=== PATIENT | female | born 1955 | race Caucasian/White ===

== ENCOUNTER 2019-09-27 16:53 | Observation (INO) | payer OTHER ==
[~2019-09-27] VITALS: Ht 167.6 cm; Wt 72.6 kg
[2019-10-29] MEDS ORDERED: ZOCOR20 MG PO (13:23)
[2019-10-29] MEDS ORDERED: LISINOPRIL20 MG PO (13:24)
[2019-10-29] MEDS ORDERED: HYDROCHLOROTHIA25 M2 PO (13:24)
[2019-10-29] MEDS ORDERED: YUVAFEM10 MCG (13:25)
[2019-10-29] MEDS ORDERED: TRAMADOL 50 MG50 MG PO (13:26)
[2019-10-29] MEDS ORDERED: BIOTIN1 MG PO (13:26)
[2019-10-29] MEDS ORDERED: VITAMIN B125000 MCG PO (13:27)
[2019-10-29] MEDS ORDERED: CITRACAL SOFT1 EACH PO (13:28)
[2019-10-29] MEDS ORDERED: PROBIOTIC1 EAC7 PO (13:29)
[2019-10-29] MEDS ORDERED: ASA81BEC PO (13:30)
[2019-10-29] MEDS ORDERED: MELATONIN10 M1 PO (13:30)
[2019-10-29] MEDS ORDERED: PREBIOTIC PO (13:32)
[2019-11-02 11:15] LABS: HEMATOCRIT 42.4 % (37.0-47.0); HEMOGLOBIN 14.4 gm/dL (12.0-15.0); MCH 32.8 pg (26.0-34.0); MCV 96.3 fL (80.0-100.0); RBC 4.4 mil/uL (4.20-5.00); RDW 12.6 % (10.5-14.5); WBC 5.3 thou/uL (4.0-11.0)
[2019-11-02 11:21] LABS: URINE BILIRUBIN NEGATIVE (Negative); URINE BLOOD NEGATIVE (Negative); URINE CLARITY CLEAR; URINE COLOR YELLOW; URINE GLUCOSE-RANDOM* NEGATIVE (Negative); URINE KETONES NEGATIVE (Negative); URINE NITRITE-REFLEX NEGATIVE (Negative); URINE PROTEIN (DIPSTICK) NEGATIVE (Negative); URINE UROBILINOGEN 0.2 E.U./dl (0.2-1.0)
[2019-11-02 11:22] LABS: URINE LEUKOCYTES-REFLEX 1+ (Negative)
[2019-11-02 11:27] LABS: PROTIME 10.7 Seconds (9.3-11.4)
[2019-11-02 11:28] LABS: ALBUMIN 4.7 g/dL (3.4-5.0); CALCIUM 9.8 mg/dL (8.5-10.1); POTASSIUM 3.7 mmol/L (3.5-5.1)
[2019-11-02 12:14] LABS: SQUAMOUS >10 Many /LPF (0-3); YEAST-REFLEX Present (None Seen)
[2019-11-02 12:15] LABS: BACTERIA-REFLEX 1-9 Few /HPF (None Seen); CASTS None Seen /LPF (None Seen); CRYSTALS None Seen /LPF (None Seen); URINE RBC None Seen /HPF (0-2); URINE WBC-REFLEX 0-5 Rare /HPF (0-5)
[2019-11-03] MEDS ORDERED: NORVASC5 M1 PO (11:27)
[2019-11-10 11:38] VITALS: BP 134/80
[2019-11-10 16:16] VITALS: BP 114/69
[2019-11-10 17:15] VITALS: BP 110/71
--- NOTE | 2019-11-10 17:27 | NUR ---
PATIENT ADMITTED FROM OR WITH RIGHT HIP REPLACEMENT, MOHINI DRESSING, KNEE DONY HOSE, SCD'S, AND ICE PACK IN PLACE. PATIENT C/O PAIN 3/10. PATIENT ALERT AND ORIENTED X 4. PATIENT HAS LEFT HAND IV IN PLACE WITH D51/2 NS AT 100CC/HR. PATIENT ORDERED REGULAR DIET FOR DINNER, TOLERATED PUDDING AND CRACKERS, NO C/O NAUSEA. VS STABLE. ADMISSION COMPLETED, REPORT GIVEN TO JOSE LUIS/RN. PATIENT REQUESTED TRAMADOL FOR PAIN, ORDER IN COMPUTER FOR TRAMADOL 100MG PAIN LEVEL 1-5 TO START TOMORROW, BUT MEDICATION GIVEN PER PATIENT REQUEST, THIS RN LEFT MESSAGE AT [facility] ABOUT MEDICATION ORDER, WILL AWAIT CALL BACK. WILL CONTINUE TO MONITOR.
[2019-11-10] MEDS ORDERED: MUPIROCIN15 GM TOP (17:56)
[2019-11-10 19:45] VITALS: BP 97/58
--- NOTE | 2019-11-10 19:53 | NUR ---
PT CARE ASSUMED AT 1530. A&Ox4. HIP PRECAUTIONS IN PLACE. DIET ADVANCED TO REGULARDIET. PT HAS NOT REQUESTED ANY PAIN MEDICATION YET. PAIN AT A 2. IV PATENT WITH NO REDNESS OR EDEMA. FLUIDS INFUSING. ON RA. PT HAS NOT GOTTEN UP YET OR URINATED. ICEPACK IN PLACE. FALL PROTOCOL IN PLACE. CALL LIGHT IN REACH.
[2019-11-11 01:01] VITALS: BP 99/80
[2019-11-11 04:00] VITALS: BP 115/66
[2019-11-11 05:31] LABS: HEMATOCRIT 28.5 % (37.0-47.0); HEMOGLOBIN 9.7 gm/dL (12.0-15.0); MCH 33.2 pg (26.0-34.0); MCHC 34.2 g/dL (28.0-37.0); MCV 97.3 fL (80.0-100.0); RBC 2.93 mil/uL (4.20-5.00); RDW 12.5 % (10.5-14.5)
--- NOTE | 2019-11-11 06:20 | NUR ---
PT AOX4. PT REPORTS PAIN IN RIGHT HIP. PT REPORTS PAIN INCREASES AFTER AMBULATION. PT RECEIVING PRN PO TRAMADOL Q4HR WITH PRN PO NORCO Q4HR AVAILABLE. PT AMBULATING WITH WALKER AND X1 ASSIST TO TOILET. PT ASSESSED WITH WEAK BILATERAL PEDAL PULSES, COOL BLE, LESS THAN 3SEC CAPILLARY REFILL. PT REPORTS SLIGHT NUMBNESS AND TINGLING FROM KNEE DOWN. PT TOLERATING PO INTAKE OF FLUIDS AND REGULAR DIET. PT INDEPENDENT WITH REPOSITIONING. PILLOW IN BETWEEN LEGS TO MAINTAIN HIP PRECAUTIONS. ENCOURAGED PT TO NOTIFY STAFF FOR ALL NEEDS. CALL LIGHT WITHIN REACH, BED ALARM ON, BED IN LOWEST POSITION. WILL CONTINUE TO MONITOR.
[2019-11-11 08:00] VITALS: BP 101/60
--- NOTE | 2019-11-11 08:26 | NUR ---
ASSESSMENT: CM REVIEWED CHART AND SPOKE WITH PATIENT. PT WAS ADMITTED FOR TOTAL R HIP. PT IS ALERT AND ORIENTED X4. PT REPORTS THAT SHE LIVES IN A HOUSE WITH HER . PT REPORTS NO STEPS TO ENTER THE HOME AND REPORTS HE BEDROOM IS ON THE MAIN LEVEL. PT REPORTS HAVING STEPS TO THE BASEMENT BUT REPORTS SHE DOES NOT HAVE TO GO DOWN THERE. PT REPORTS SHE ALREADY HAS A CANE AND WALKER AT HOME. PT STATES SHE IS INDEPENDENT WITH ADLS AND HAS A SHOWER SEAT. PT REPORTS SHE HAS NEVER HAD HH IN THE PAST NOR BEEN TO A SNF. PT STATES SHE ALREADY HAS OUTPATIENT THERAPY ARRANGED AT [facility] TO START TOMORROW. PT REPORTS SHE WILL HAVE NO NEEDS FROM CM PRIOR TO DISCHARGE.
[2019-11-11 13:33] VITALS: BP 101/60
--- NOTE | 2019-11-11 13:45 | NUR ---
PT ASSESSED AT START OF SHIFT. DOING WELL. PAIN UNDER CONTROL W/ MEDS. WALKING WELL W/ WALKER. WORKED W/ THERAPY. EATING AND DRINKING. AND VOIDING. TO HOME AT THIS TIME W/ ALL BELONGINGS.
--- NOTE | 2019-11-18 12:09 | O ---
[facility] [place] [address] OPERATIVE REPORT Name: BOBBY LEIVA Room #: 438-P [facility] Adriel Shelton#: [id number] Admission: 11/10/19 Attend Phys: Adolfo Zaragoza MD Discharge: 11/11/19 Date of : 51 Report #: [id number] THIS REPORT FOR: cc: Sonal Keith MD, Jennifer L MD Abraham,Adolfo Stewart MD ~ CC: Sonal Zaragoza DATE OF SERVICE: 11/10/2019 PREOPERATIVE DIAGNOSIS: Right hip osteoarthritis. POSTOPERATIVE DIAGNOSIS: Right hip osteoarthritis. PROCEDURE: Right total hip arthroplasty. SURGEON: Adolfo Zaragoza MD. RACK MAKER: Sushma Burch PA-C. INDICATIONS FOR RACK MAKER: Throughout the case, extensive retraction and manipulation of the hip including dislocation and reduction was required. This was afforded to me by my yard assistant. ANESTHESIA: General. IMPLANTS: [employer]hew size 13 high offset Synergy press-fit stem, 1 Accord cerclage cable for prophylactic fixation, size 54 R3 acetabular cup and a size 36+0 Oxinium head. ESTIMATED BLOOD LOSS: 100 mL. COMPLICATIONS: None. SPECIMENS: None. CONDITION UPON LEAVING THE OPERATING ROOM: Stable. INDICATIONS FOR PROCEDURE: The patient is a 64-year-old female with severe right hip osteoarthritis. She had failed conservative measures for this and after discussion with her, she elected for right total hip arthroplasty. DESCRIPTION OF PROCEDURE: Risks, benefits, alternatives, complications were discussed in detail with the patient including but not limited to risk of anesthesia, risk of damage to nerves, arteries, blood vessels, risk for [facility] [address] [place] [address] OPERATIVE REPORT Name: BOBBY LEIVA CHARLY Room #: 438-P [facility] Adriel Shelton#: [id number] Admission: 11/10/19 Attend Phys: Adolfo Zaragoza MD Discharge: 11/11/19 Date of : 51 Report #: [id number] infection, bleeding, risk for continued hip pain, leg length discrepancy, instability and need for reoperation. Informed consent was obtained from the patient. The right hip was appropriately marked in the preoperative holding area. IV Ancef was given for preoperative antibiotics. She was brought to the operating room and placed in supine position on operating room table. General anesthesia was induced without complication. She was placed in the left lateral decubitus position with the right hip uppermost. Right hip and lower extremity were prepped and draped in normal sterile fashion. Timeout was performed properly identifying the patient and procedure as well as the instrumentation and implants. All in the operating room were in agreement. Standard posterior approach to the hip was made with 10 blade through the skin. Dissection was taken down to fascia with Bovie cautery. Gotti elevator was used to clean off the fascia. Fresh 10 blade was used to make a fascial incision. This was taken proximally and distally with curved Christine scissor. Charnley retractor was placed. Trochanteric bursa was taken down with Bovie cautery. Piriformis tendon was identified, tagged and taken down with Bovie. Short external rotators were also taken down with Bovie cautery. Capsulotomy was made and capsule ends were tagged for later repair. Hip was dislocated. There was extensive osteoarthritic change of the femoral head. Femoral neck cut was made 1 cm proximal to lesser trochanter based on preoperative templating and the femoral head was removed. Deep acetabular retractors were placed. Labrum was removed sharply. Pulvinar was removed with Bovie cautery. Acetabulum was then sequentially reamed up to a size 54, at which point there was excellent bleeding cancellous bone. A size 53 trial cup was placed, found to have a good fit. Final size 54 R3 acetabular cup was placed and seated. One acetabular screw was placed for backup fixation and a polyethylene liner for a 36 head was placed. Attention was then turned to the femur, 1 Accord cerclage cable was placed around the proximal femur just proximal to the lesser trochanter. The femur was then reamed and broached up to a size 13, at which point, the size 13 broach was stable, was trialed with a high offset neck and a 36+0 head. Hip was reduced, taken through range of motion, found to be stable, found to have equal leg lengths. Hip was dislocated and broach was removed. Final size 13 high offset Synergy press-fit stem was placed. This was then trialed again with a 36+0 head. Hip was reduced, taken through range of motion, found to be stable, found to have equal leg lengths. Hip was dislocated one last time and a final size 36+0 Oxinium head was placed. Hip was reduced, taken through range of motion, found to be stable, found to have equal leg lengths. Hip was thoroughly irrigated with normal saline. A gram of vancomycin was placed deep in the joint. Periarticular injection consisting of morphine, ropivacaine, epinephrine and Toradol was placed around the hip joint capsule. The capsule and piriformis were repaired with 0 FiberWire. Fascia was closed with 0 Vicryl. Skin was closed with 2-0 Vicryl, 3-0 Monocryl. Dermabond and a MOHINI dressing was [address] [address] OPERATIVE REPORT Name: BOBBY LEIVALTZ Room #: 438-P [facility] Adriel Shelton#: [id number] Admission: 11/10/19 Attend Phys: Adolfo Zaragoza MD Discharge: 11/11/19 Date of : 51 Report #: [id number] applied. The patient tolerated this procedure well and went to recovery room under care of anesthesia postoperatively. <ELECTRONICALLY SIGNED> By: Adolfo Zaragzoa MD 11/18/19 1209 [id number] 1455 Adolfo Zaragoza MD /nt
== END 2019-11-11 15:57 | disposition short-term general hospital (02) ==
LOC: PRE 16:53 → 4S 11-10 10:27 → TBA 11-10 10:27 → PRE 11-10 10:28 → 4S 11-10 15:05
PROVIDERS: ADMIT Orthopaedic Surgery; ATTEND Orthopaedic Surgery
DX: Z03.818 Encounter for observation for suspected exposure to other biological agents ruled out (principal); M16.11 Unilateral primary osteoarthritis, right hip
CPT/HCPCS: 10102; 50010; 50101; 50382; 50414; 53000; 53078; 53368; 54118; 56524; 56527; 56528; 56530; 57095; 57103; 57496; 62110; 62900; 70005

== ENCOUNTER → 2020-05-22 | Outpatient (CLI) | payer OTHER ==
[~2020-05-22] MED LIST: ASA81BEC PO; BIOTIN1 MG PO; CITRACAL SOFT1 EACH PO; HYDROCHLOROTHIA25 M2 PO; LISINOPRIL20 MG PO; MELATONIN10 M1 PO; MUPIROCIN15 GM TOP; NORVASC5 M1 PO; PREBIOTIC PO; PROBIOTIC1 EAC7 PO; TRAMADOL 50 MG50 MG PO; VITAMIN B125000 MCG PO; YUVAFEM10 MCG; ZOCOR20 MG PO
== END ==
LOC: LAB 14:22
PROVIDERS: ATTEND Emergency Medicine Emergency Medical Services
DX: Z20.828 Contact with and (suspected) exposure to other viral communicable diseases (principal)